=== PATIENT | male | born 1945 | race Caucasian/White ===

== ENCOUNTER 2018-08-25 16:11 | Emergency (ER) | payer MEDICARE, OTHER ==
--- NOTE | 2018-08-25 17:55 | EDM.PDOC ---
<OfficerEros - Last Filed: 08/25/18 17:51> ED HPI GENERAL MEDICAL PROBLEM - General Chief Complaint: Chest Pain Stated Complaint: HEART ISSUES Time Seen by Provider: 08/25/18 17:36 Source of Information: Reports: Patient, Family, Old Records, RN Notes Reviewed History Limitations: Reports: No Limitations - History of Present Illness INITIAL COMMENTS - FREE TEXT/NARRATIVE: 72-year-old gentleman presents emergency department today complaint of chest pain, he states the chest pain is very repeatable's been going on for 3 days it only happens when he exerts himself he does become nauseated some diaphoresis and shortness of breath he stops and rests all of his symptoms resolved. He did have a fairly extensive cardiac workup about 6 months ago at which time he was hypertensive poor controlled diabetes poor control was evaluated in the [facility] underwent a nuclear med test which showed negative for ischemic disease as well as echocardiogram which showed good systolic function however he does have grade 2 diastolic disease since that time he has lost about 45 pounds he is now off several of his blood pressure medications blood pressure has been good control and his blood sugars also good control - Related Data Allergies Allergy/AdvReac Type Severity Reaction Status Date / Time tramadol AdvReac Agitation Verified 08/25/18 16:34 Home Meds: Home Meds Ascorbic Acid [Vitamin C] 1,000 mg PO DAILY 09/09/13 [History] Aspirin [Taryn Chewable Aspirin] 81 mg PO BID 09/09/13 [History] Calcium Carbonate [Calcium] 200 mg PO DAILY 09/09/13 [History] Cyanocobalamin (Vitamin B-12) [Vitamin B-12] 1,000 mcg SL DAILY 09/09/13 [ History] Multivitamin with Minerals [Multiple Vitamin] 1 tab PO DAILY 09/09/13 [History] Vitamin B Complex/Folic Acid [Vitamin B-100 Complex] 0.4 mg PO DAILY 09/09/13 [ History] Naproxen Sodium [Aleve] 420 mg PO BID PRN 02/18/18 [History] Lisinopril 5 mg PO DAILY 08/25/18 [History] metFORMIN HCl [Metformin HCl] 1,000 mg PO BID 08/25/18 [History] Past Medical History HEENT History: Reports: Impaired Vision Cardiovascular History: Reports: Angina, Hypertension Respiratory History: Reports: Sleep Apnea Endocrine/Metabolic History: Reports: Diabetes, Type II - Past Surgical History GI Surgical History: Reports: Bariatric Procedure, Hernia Repair/Other Social & Family History - Family History Cardiac: Reports: [place] - Tobacco Use Smoking Status *Q: Never Smoker - Caffeine Use Caffeine Use: Reports: Soda - Recreational Drug Use Recreational Drug Use: No ED ROS GENERAL - Review of Systems Review Of Systems: See Below Constitutional: Reports: Diaphoresis HEENT: Reports: No Symptoms Respiratory: Reports: Shortness of Breath Cardiovascular: Reports: Chest Pain, Dyspnea on Exertion GI/Abdominal: Reports: Nausea Musculoskeletal: Reports: No Symptoms Skin: Reports: No Symptoms Neurological: Reports: No Symptoms ED EXAM, GENERAL - Physical Exam Exam: See Below Free Text/Narrative:: General: Male, not in any distress, alert and oriented x3 HEENT: head is atraumatic normocephalic, eyes pupils equal round reactive to light, sclera clear no conjunctivitis appreciated. Ears tympanic membranes clear and stevens landmarks and light reflex are present bilaterally canals are clear. Nose no septal deviation, nares are clear, no blood present. Mouth mucosa is moist and pink no erythema or exudate noted in soft palate, tongue is midline uvula is midline, dentition is intact. Neck: Supple no thyromegaly no tracheal deviation. Nodes: Cervical nodes subclavicular nodes nontender no palpable lymphadenopathy noted. Lungs: clear to auscultation bilaterally with symmetrical respirations, no adventitious noise appreciated. CV: Regular rate and rhythm S1 and S2 appreciated no murmurs rubs or gallops noted. Abdomen: Soft, nontender, no palpable masses or organomegaly appreciated, no distention no guarding bowel sounds are present, . Neuro: GCS of 15, cranial nerves II through XII intact Skin: Warm and dry, intact Extremities: No lower extremity edema appreciated, Course - Vital Signs Last Recorded V/S: Last Vital Signs Temp 36.8 C 08/25/18 16:38 Pulse 73 08/25/18 16:38 Resp 13 08/25/18 16:38 BP 135/57 L 08/25/18 16:38 Pulse Ox 97 08/25/18 16:38 - Orders/Labs/Meds Orders: Active Orders 24 hr Category Date Time Status Cardiac Monitoring [RC] .As Directed Care 08/25/18 17:51 Active EKG Documentation Completion [RC] ASDIRECTED Care 08/25/18 17:51 Active EKG 12 Lead [EK] Stat Ther 08/25/18 17:51 Ordered Labs: Laboratory Tests 08/25/18 08/25/18 Range/Units 18:03 18:03 WBC 6.3 (4.5-11.0) K/uL RBC 3.81 L (4.30-5.90) M/uL Hgb 11.9 L D (12.0-15.0) g/dL Hct 37.2 L (40.0-54.0) % MCV 98 (80-98) fL MCH 31 (27-31) pg MCHC 32 (32-36) % Plt Count 165 (150-400) K/uL Neut % (Auto) 48 (36-66) % Lymph % (Auto) 33 (24-44) % [place] % (Auto) 8 H (2-6) % Eos % (Auto) 10 H (2-4) % Baso % (Auto) 0 (0-1) % Sodium 142 (140-148) mmol/L Potassium 4.1 (3.6-5.2) mmol/L Chloride 105 (100-108) mmol/L Carbon Dioxide 30 (21-32) mmol/L Anion Gap 7.4 (5.0-14.0) mmol/L BUN 25 H D (7-18) mg/dL Creatinine 1.2 (0.8-1.3) mg/dL Est Cr Clr Drug Dosing 58.39 mL/min Estimated GFR (MDRD) 59 L (>60) Glucose 113 H (74-106) mg/dL Calcium 9.6 (8.5-10.1) mg/dL Total Bilirubin 0.5 (0.2-1.0) mg/dL AST 18 (15-37) U/L ALT 17 (12-78) U/L Alkaline Phosphatase 48 (46-116) U/L Troponin I < 0.017 (0.000-0.056) ng/mL Total Protein 7.1 (6.4-8.2) g/dL Albumin 3.5 (3.4-5.0) g/dL Globulin 3.6 H (2.3-3.5) g/dL Albumin/Globulin Ratio 1.0 L (1.2-2.2) Departure - Departure Disposition: Home, Self-Care 01 Clinical Impression: Angina of effort, Chest pain on exertion Diabetes mellitus, type II Qualifiers: Diabetes mellitus halfway insulin use: without exterminator termite use Diabetes mellitus complication status: without complication Qualified Code(s): E11.9 - Type 2 diabetes mellitus without complications HTN (hypertension) Qualifiers: Hypertension type: unspecified Qualified Code(s): I10 - Essential (primary) hypertension Instructions: Preventing Diabetes Mellitus Complications, Coronary Artery Disease, Male, Cardiac Nuclear Scan, Exercise Stress Test Referrals: Lucy Childress PA [Primary Care Provider] - Forms: ED Department Discharge Additional Instructions: 1. Continue current home medications. 2. Outpatient stress test ordered may be scheduled this week. 3. Follow-up with your PCP on Saturday as planned and discussed ER visit today. 4. Return to ER if concerns changes, new, worsening symptoms or concerns. <Leticia Rehman - Last Filed: 08/25/18 19:30> Course - Radiology Interpretation Free Text/Narrative:: CXR PA/LAT: No significant acute cardiopulmonary findings noted. Images read by myself and reviewed with Dr Officer during ER visit. Radiology report reviewed. Impression: No signs of acute disease. - Re-Assessments/Exams Free Text/Narrative Re-Assessment/Exam: Alert 72-year-old gentleman presents with cough anginal symptoms with exertion activity which is similar to symptoms he had 6 months ago. Patient had a cardiac workup in February 2018. Cardiology recommended better management of blood pressure diabetes. Patient has lost 45 pounds and is improved his blood pressure blood sugar management. Patient states his symptoms recurred over the last 3-4 days. Patient discharged of breath diaphoretic and sweaty with activity and improves with decreased activity discontinued exertion. Cardiac workup was completed including troponin which was negative moderate renal insufficiency noted. EKG showed no acute changes compared to previous chest x- ray is normal. Patient's is concern about his decrease in exercise tolerance. I discussed outpatient stress test which patient is amenable. Hopefully that'll be scheduled this week. He has a follow-up on Saturday with his primary care provider for diabetic recheck and discuss stress test results. Patient may need referral to cardiology if positive stress test and continuing concerns and anginal symptoms. I believe the patient is safe to be discharged home at this point in time. Patient and are agreeable to discharge and outpatient study. 08/25/18 19:21 Departure - Departure Time of Disposition: 19:30 Condition: Good - Problem List & Annotations (1) HTN (hypertension) SNOMED Code(s): 32458048 Code(s): I10 - ESSENTIAL (PRIMARY) HYPERTENSION Status: Acute Current Visit: Yes Qualifiers: Hypertension type: unspecified Qualified Code(s): I10 - Essential (primary ) hypertension (2) Chest pain on exertion SNOMED Code(s): 66097550 Code(s): R07.9 - CHEST PAIN, UNSPECIFIED Status: Acute Current Visit: Yes - Assessment/Plan Plan: 1. Continue current home medications. 2. Outpatient stress test ordered may be scheduled this week. 3. Follow-up with your PCP on Saturday as planned and discussed ER visit today. 4. Return to ER if concerns changes, new, worsening symptoms or concerns.
--- NOTE | 2018-08-25 18:30 | CRLCR ---
INDICATION: Chest pain TECHNIQUE: Chest 2 views. COMPARISON: February 18, 2018 FINDINGS: Cardiovascular and mediastinum: Heart size and vasculature are normal in caliber and appearance. Mediastinum is within normal limits. Lungs and pleural spaces: Lungs are clear. No sign of infiltrate or mass. No sign of pleural effusion. No pneumothorax. Bones and soft tissues: No acute findings. IMPRESSION: No sign of acute disease. Dictated by Roselyn Jeffrey MD @ Aug 25 2018 6:28PM Signed by Dr. Roselyn Jeffrey @ Aug 25 2018 6:28PM
== END 2018-08-25 19:48 | disposition home or self-care (01) ==
LOC: JP.ED 16:11
DX: I20.8 Other forms of angina pectoris (principal); I10 Essential (primary) hypertension; E11.9 Type 2 diabetes mellitus without complications; Z79.84 Long term (current) use of oral hypoglycemic drugs; Z79.82 Long term (current) use of aspirin; Z79.899 Other long term (current) drug therapy; Z98.84 Bariatric surgery status; Z88.5 Allergy status to narcotic agent
CPT/HCPCS: 36415; 71046; 80053; 84484; 85025; 93005; 99284-25

== ENCOUNTER 2019-12-20 22:35 | Emergency (ER) | payer MEDICARE ==
--- NOTE | 2019-12-20 23:24 | EDM.PDOC ---
ED HPI GENERAL MEDICAL PROBLEM - General Chief Complaint: Cardiovascular Problem Stated Complaint: CHEST PAIN,SOB Time Seen by Provider: 12/20/19 23:16 Source of Information: Reports: Patient History Limitations: Reports: No Limitations - History of Present Illness INITIAL COMMENTS - FREE TEXT/NARRATIVE: Patient presents because of irregular heartbeat tonight at home along with feelings of shortness of breath. He had a pacemaker placed approximately 18 months ago and was concerned tonight that his pacemaker was malfunctioning because of the fluttering he felt in his chest. Apparently 18 months ago he sustained an MD and was then transferred from [facility] in [place] to [facility] in [place] for further care and pacemaker placement. Those records are not available at the moment. He has done well up until now and felt fine earlier in the day and through the rest of the holiday weekend. He is current on all medications and has not been missing any doses. Tonight about 1900 hrs. he began to feel fluttering in his chest and a sense that he could not catch his breath. After things did not improve, he opted to come in wondering whether or not his pacemaker was functioning correctly? At this time, he has no chest pain or pressure. No cough or wheezing. No abdominal pain, nausea, vomiting. Onset: Today Onset Date: 12/20/19 Duration: Hour(s): (4) Location: Reports: Generalized Severity: Mild Improves with: Reports: None Worsens with: Reports: Movement Associated Symptoms: Reports: No Other Symptoms denies pain Pain Score (Numeric/FACES): 0 - Related Data Allergies Allergy/AdvReac Type Severity Reaction Status Date / Time tramadol AdvReac Agitation Verified 12/20/19 23:01 Home Meds: Home Meds Ascorbic Acid [Vitamin C] 1,000 mg PO DAILY 09/09/13 [History] Aspirin [Taryn Chewable Aspirin] 81 mg PO BID 09/09/13 [History] Calcium Carbonate [Calcium] 200 mg PO DAILY 09/09/13 [History] Cyanocobalamin (Vitamin B-12) [Vitamin B-12] 1,000 mcg SL DAILY 09/09/13 [History] Multivitamin with Minerals [Multiple Vitamin] 1 tab PO DAILY 09/09/13 [History] Vitamin B Complex/Folic Acid [Vitamin B-100 Complex] 0.4 mg PO DAILY 09/09/13 [History] Naproxen Sodium [Aleve] 420 mg PO BID PRN 02/18/18 [History] metFORMIN HCl [Metformin HCl] 1,000 mg PO BID 08/25/18 [History] Metoprolol Succinate 25 mg PO DAILY 12/20/19 [History] Nitroglycerin 0.4 mg SL ASDIRECTED PRN 12/20/19 [History] atorvaSTATin [Lipitor] 20 mg PO DAILY 12/20/19 [History] lisinopriL [Prinivil] 20 mg PO DAILY 12/20/19 [History] Past Medical History HEENT History: Reports: Impaired Vision Cardiovascular History: Reports: Angina, Hypertension Respiratory History: Reports: Sleep Apnea Endocrine/Metabolic History: Reports: Diabetes, Type II - Past Surgical History GI Surgical History: Reports: Bariatric Procedure, Hernia Repair/Other Social & Family History - Family History Cardiac: Reports: [place] - Caffeine Use Caffeine Use: Reports: Soda ED ROS GENERAL - Review of Systems Review Of Systems: Comprehensive ROS is negative, except as noted in HPI. ED EXAM, GENERAL - Physical Exam Exam: See Below Free Text/Narrative:: This is an adult male interviewed and examined in room 9. He looks at the air sampling and monitoring regularly to determine how fast his heart is beating. He is in no distress. Exam Limited By: No Limitations General Appearance: Alert, Anxious Neck: Normal Inspection. No: Carotid Bruit Respiratory/Chest: No Respiratory Distress, Lungs Clear Cardiovascular: Regular Rate, Rhythm, Other (The patient has a mixture of e ndogenous and paced beats on air sampling and monitoring.). No: Systolic Murmur GI/Abdominal: Normal Bowel Sounds, Soft, Non-Tender Back Exam: Normal Inspection Extremities: Normal Inspection Neurological: Alert, Oriented EKG INTERPRETATION EKG Date: 12/20/19 Time: 22:46 Rhythm: A-Flutter Rate (Beats/Min): 102 Prentice: LAD-Left Prentice Deviation P-Wave: Variable QRS: Wide ST-T: Normal QT: Normal EKG Interpretation Comments: Overall appearance of EKG tonight is that of atrial flutter background rate with intermittent endogenous heartbeats and paced beats. This EKG looks different from those obtained in 2019 and 2018. The atrial flutter pattern is pronounced today not present in those. Course - Vital Signs Last Recorded V/S: Last Vital Signs Temp 36.7 C 12/21/19 01:56 Pulse 87 12/21/19 01:56 Resp 12 12/21/19 01:56 BP 126/78 12/21/19 01:56 Pulse Ox 97 12/21/19 01:56 - Orders/Labs/Meds Labs: Laboratory Tests 12/20/19 12/20/19 Range/Units 23:00 23:00 WBC 7.5 (4.5-11.0) K/uL RBC 4.00 L (4.30-5.90) M/uL Hgb 12.3 (12.0-15.0) g/dL Hct 38.6 L (40.0-54.0) % MCV 97 (80-98) fL MCH 31 (27-31) pg MCHC 32 (32-36) % Plt Count 142 L (150-400) K/uL Neut % (Auto) 50 (36-66) % Lymph % (Auto) 32 (24-44) % [place] % (Auto) 9 H (2-6) % Eos % (Auto) 9 H (2-4) % Baso % (Auto) 0 (0-1) % Sodium 146 (140-148) mmol/L Potassium 4.0 (3.6-5.2) mmol/L Chloride 111 H (100-108) mmol/L Carbon Dioxide 25 (21-32) mmol/L Anion Gap 14.0 (5.0-14.0) mmol/L BUN 31 H (7-18) mg/dL Creatinine 1.3 (0.8-1.3) mg/dL Est Cr Clr Drug Dosing 52.29 mL/min Estimated GFR (MDRD) 54 L (>60) Glucose 109 H (74-106) mg/dL Calcium 9.0 (8.5-10.1) mg/dL Total Bilirubin 0.7 (0.2-1.0) mg/dL AST 22 (15-37) U/L ALT 20 (12-78) U/L Alkaline Phosphatase 74 (46-116) U/L Troponin I < 0.017 (0.000-0.056) ng/mL NT-Pro-B Natriuret Pep 1997 H (5-450) pg/mL Total Protein 7.0 (6.4-8.2) g/dL Albumin 3.6 (3.4-5.0) g/dL Globulin 3.4 (2.3-3.5) g/dL Albumin/Globulin Ratio 1.1 L (1.2-2.2) Meds: Medications Discontinued Medications Generic Name Dose Route Start Last Admin Trade Name Barry PRN Reason Stop Dose Admin Metoprolol Tartrate 5 mg 12/20/19 23:39 12/20/19 23:53 Lopressor IVPUSH 12/20/19 23:40 5 mg ONETIME ONE Administration Sodium Chloride 10 ml 12/20/19 23:38 12/21/19 00:03 Saline Flush FLUSH 10 ml ASDIRECTED PRN Administration Keep Vein Open - Re-Assessments/Exams Free Text/Narrative Re-Assessment/Exam: 12/20/19 23:45 He will be given metoprolol 5 mg IV. We will check labs and imaging as well. Depending on response of the flutter pattern to rate control, he may need adjustment of outpatient meds. Whether or not he needs admission is undetermined at this time. 12/21/19 01:12 0103 hrs., after receiving metoprolol 5 mg, his rate has stayed in the 70-80 range. There is still an atrial fibrillation/flutter appearance. He has no chest pain or shortness of breath. Chest imaging is still pending at this time. He is hoping that he is going back home shortly. 12/21/19 06:37 His chest x-ray was unremarkable. Heart rate reduced and stayed in the 80-90 range. I discussed again that he will likely continue to feel "fluttering in his chest because he has a mixture of his own and additionally beats from his pacemaker. I discussed the programming of pacemakers with baseline rate and their function. He has a home telemetry unit for analysis of the pacemaker. They will contact their cardiology clinic on Saturday, 21 December and have a telephone evaluation performed. No additional medication was prescribed at this time as the patient is asymptomatic other than the sensation of fluttering in his chest. He was discharged in stable condition. Departure - Departure Time of Disposition: 02:12 Disposition: Home, Self-Care 01 Condition: Good Clinical Impression: Pacemaker Arrhythmia Qualifiers: Arrhythmia type: unspecified cardiac arrhythmia Qualified Code(s): I49.9 - Cardiac arrhythmia, unspecified Instructions: Pacemaker Implantation, Adult, Care After Referrals: Haroldson,Lucy A, PA [Primary Care Provider] - Forms: ED Department Discharge Additional Instructions: Continue current medications. Contact your cardiology clinic on Saturday and tell them about your visit here. I recommend taking note of your heart rate and blood pressure several times today, Saturday, and let them know that information when you call. If you feel dizzy, lightheaded or developing any chest heaviness or pressure, you should return here. Sepsis Event Note (ED) - Evaluation Sepsis Screening Result: No Definite Risk
[2019-12-20] MEDS ORDERED: Sodium Chloride 0.9% 10 ML Syringe FLUSH PRN (23:38)
[2019-12-20] MEDS ORDERED: Metoprolol Tartrate 5 MG/5 ML SDV IVPUSH ONE (23:39)
--- NOTE | 2019-12-21 11:06 | CR ---
CHEST: Portal 12/21/2019 at 1:25 AM CLINICAL HISTORY:Irregular heartbeat COMPARISON:August 2018 FINDINGS: Heart size and pulmonary vascularity are normal. There are atherosclerotic changes in the aorta.. Patient has a permanent cardiac pacer. One mackay are clear Impression: No acute cardiac pulmonary process Primary cardiac pacer.
== END 2019-12-21 02:29 | disposition home or self-care (01) ==
LOC: JP.ED 22:35
DX: I49.9 Cardiac arrhythmia, unspecified (principal); Z95.0 Presence of cardiac pacemaker; I10 Essential (primary) hypertension; E11.9 Type 2 diabetes mellitus without complications; I48.92 Unspecified atrial flutter; Z88.5 Allergy status to narcotic agent; Z79.82 Long term (current) use of aspirin; Z79.899 Other long term (current) drug therapy; Z79.84 Long term (current) use of oral hypoglycemic drugs
CPT/HCPCS: 36415; 71045; 80053; 83880; 84484; 85025; 93005; 96374; 99285; J3490

== ENCOUNTER 2022-01-11 12:26 | Emergency (ER) | payer MEDICARE ==
[2022-01-11 13:40] LABS: TROPONIN I HIGH SENSITIVITY 517.4 pg/mL (<=60.3)
[2022-01-11] MEDS: Heparin Sodium 5,000 Units/ML Vial IVPUSH ONE (14:22)
[2022-01-11] MEDS: Heparin Sodium/D5W 25,000 UNITS/500 ML BAG IV SCH (14:23)
== END 2022-01-11 19:54 ==
LOC: JP.ED 12:26
DX: I21.4 Non-ST elevation (NSTEMI) myocardial infarction (principal); E78.00 Pure hypercholesterolemia, unspecified; I10 Essential (primary) hypertension; E11.9 Type 2 diabetes mellitus without complications; Z88.5 Allergy status to narcotic agent; Z79.899 Other long term (current) drug therapy; Z79.82 Long term (current) use of aspirin; Z79.84 Long term (current) use of oral hypoglycemic drugs; Z87.891 Personal history of nicotine dependence; Z20.822 Contact with and (suspected) exposure to COVID-19
CPT/HCPCS: 36415; 71045; 80048; 84484; 85025; 85610; 85730; 93005; 96365; 96366; 96376; 99285; J1644; U0002